=== PATIENT | male | born 1995 ===

== ENCOUNTER 2022-12-31 06:00 | Day surgery (SDC) | payer OTHER ==
[~2022-12-31 06:00] MED LIST: ATORVASTATIN CA10 MG PO
== END 2022-12-31 16:00 | disposition home or self-care (01) ==
LOC: CIR.AMB 06:00
PROVIDERS: ATTEND Urology
DX: N47.1 Phimosis (principal); N47.7 Other inflammatory diseases of prepuce; Z20.822 Contact with and (suspected) exposure to COVID-19; E78.49 Other hyperlipidemia